=== PATIENT | female | born 1990 | race Caucasian/White ===

== ENCOUNTER 2016-12-08 20:17 | Emergency (ER) | payer OTHER ==
[2016-12-08 20:23] VITALS: O2SAT 98
--- NOTE | 2016-12-08 21:41 | EDPHY ---
H & P Stated Complaint: R Knee Pain, workers comp Source: Patient Exam Limitations: No limitations - Personal History LMP (Females 10-55): 8-14 Days Ago Current Tetanus/Diphtheria Vaccine: Yes Current Tetanus Diphtheria and Acellular Pertussis (TDAP): Yes - Medical/Surgical History Hx Asthma: Yes Hx Chronic Respiratory Disease: No Hx Diabetes: No Hx Cardiac Disease: No Hx Renal Disease: No Hx Cirrhosis: No Hx Alcoholism: No Hx HIV/AIDS: No Hx Splenectomy or Spleen Trauma: No Other PMH: PMH: Asthma - Social History Smoking Status: Heavy smoker Time Seen by Provider: 12/08/16 20:36 HPI/ROS: CHIEF COMPLAINT: Right knee pain HISTORY OF PRESENT ILLNESS: 26-year-old female presents emergency department complaining of right knee pain. 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 She was kneeling on 1 of the seats when her right knee slid off the seat. Patient reports she felt like her patella dislocated quickly and went back into place. Patient reports she felt a pop. Patient's knee feels unstable when ambulating. She complains of pain and feeling like she cannot straighten it all the way. She denies numbness or tingling to this leg, no previous injury to this knee. REVIEW OF SYSTEMS: A comprehensive 10 point review of systems is otherwise negative aside from elements mentioned in the history of present illness. (Keila Winn) - Physical Exam Exam: GEN: Awake, alert, oriented, no acute distress RESP: nl resp effort MSK: Right knee lacks 5 degrees of extension, flexion to 90 degrees. No swelling. No medial or lateral joint line tenderness, negative valgus and varus stress, unable to perform anterior drawer or Renate's due to patient fighting exam, 2+ pedal pulses, sensation intact to light touch SKIN: No break in skin (Keila Winn) Constitutional: Initial Vital Signs Temperature (C) 36.7 C 12/08/16 20:20 Heart Rate 90 12/08/16 20:20 Respiratory Rate 18 12/08/16 20:20 Blood Pressure 129/71 H 12/08/16 20:20 O2 Sat (%) 98 12/08/16 20:20 O2 Delivery Mode Room Air Allergies/Adverse Reactions: No Known Allergies Allergy (Unverified 12/08/16 20:24) Home Medications: Medication Instructions Recorded NK [No Known Home Meds] 12/08/16 Medical Decision Making - Diagnostics Imaging: Knee x-ray independently reviewed by me- Findings: No fracture, effusion or malalignment is identified. There is no arthritis, chondrocalcinosis, erosive change, subcortical cyst formation or spurring. There is a benign bone island in the proximal tibial shaft. Overall mineralization is normal. Impression: No source for pain identified. Dictated By: Diaz Blair MD (Keila Winn) ED Course/Re-evaluation: I did not see this patient while she was in the emergency department. However her care was discussed with the nurse practitioner while the patient was in the department. I agree with treatment plan and management (Enio Stearns) Departure - Departure Disposition: Home, Routine, Self-Care Clinical Impression: Right knee sprain Condition: Good Instructions: Knee Sprain (ED) Additional Instructions: Rest, ice, elevate, take 600mg of ibuprofen every 8 hours with food for 3-5 days as needed for pain and swelling. Wear knee immobilizer and use crutches as needed for ambulation. Follow up with orthopedist at 1st available appointment. Return to the emergency department for any numbness, tingling, discoloration of you limb or other concerns. Referrals: Akila Dimas MD [Medical Doctor] - As per Instructions (Orthopedist on-call) Stand Alone Forms: Work Limited Duty, Work Comp Follow Up
[2016-12-08 22:41] VITALS: BP 120/69; PULSE 70; RESP 16; TEMP 98.4
== END 2016-12-08 22:20 | disposition home or self-care (01) ==
DX: S83.91XA Sprain of unspecified site of right knee, initial encounter (principal); J45.909 Unspecified asthma, uncomplicated; F17.200 Nicotine dependence, unspecified, uncomplicated; X58.XXXA Exposure to other specified factors, initial encounter
CPT/HCPCS: L1830

== ENCOUNTER 2017-06-08 02:29 | Emergency (ER) | payer OTHER ==
[2017-06-08 02:36] VITALS: RESP 16; O2SAT 97
--- NOTE | 2017-06-08 02:45 | EDPHY ---
H & P Stated Complaint: Cleaning sloution in eyes HPI/ROS: Chief Complaint: Hand equipment cleaner and tester in eyes HPI: 26-year-old woman was at work tonight when to wash her hands when the soap dispenser would not work. She push on it again and the soap dispenser exploded causing hand soap to get into both her eyes. She irrigated her eyes and removed her contact lenses. Continue to have persistent pain in both her eyes. No prior injuries. Has some increasing tearing. Blurry vision which seems that is normal for when she does not have her contact lenses in. ROS: 10 point Review of Systems is negative except as noted in the HPI. PMH: Anxiety Social History: Positive smoking Family History: non-contributory Physical Exam: General: Awake, alert, no acute distress HEENT: Eyes: Pupils are normal bilaterally. She has bilateral injection. She has normal tearing. PH is between 7 and 8 on pH paper. Both eyes Skin: No rash - Personal History LMP (Females 10-55): 15-21 Days Ago Current Tetanus/Diphtheria Vaccine: Yes Current Tetanus Diphtheria and Acellular Pertussis (TDAP): Yes - Medical/Surgical History Hx Asthma: Yes Hx Chronic Respiratory Disease: No Hx Diabetes: No Hx Cardiac Disease: No Hx Renal Disease: No Hx Cirrhosis: No Hx Alcoholism: No Hx HIV/AIDS: No Hx Splenectomy or Spleen Trauma: No Other PMH: PMH: Asthma - Social History Smoking Status: Heavy smoker Constitutional: Initial Vital Signs Temperature (C) 36.6 C 06/08/17 02:34 Heart Rate 84 06/08/17 02:34 Respiratory Rate 16 06/08/17 02:34 Blood Pressure 123/96 H 06/08/17 02:34 O2 Sat (%) 97 06/08/17 02:34 O2 Delivery Mode Room Air Allergies/Adverse Reactions: No Known Allergies Allergy (Unverified 12/08/16 20:24) Home Medications: Medication Instructions Recorded NK [No Known Home Meds] 12/08/16 Medical Decision Making ED Course/Re-evaluation: Patient was irrigated with 1 L normal saline each eye. Repeat pH was 7.0 both eyes. Patient was feeling significantly improved. 0.5% proparacaine was diluted with 9 mL of normal saline to make 0.05% proparacaine solution. Patient was given 3 mL of this with instructions to apply 1-2 drops every 30 minutes as needed for pain. She was also given erythromycin ointment. She will follow up with Ophthalmology in 1-2 days for further evaluation. - Data Points Medications Given: Discontinued Medications Fluorescein Sodium (Etvpp-W-[place]) 2 mg OP EDNOW ONE Stop: 06/08/17 03:26 Last Admin: 06/08/17 03:56 Dose: Not Given Proparacaine HCl (Alcaine 0.5%) 1 drops EACHEYE ONCE ONE Stop: 06/08/17 03:27 Last Admin: 06/08/17 03:56 Dose: Not Given Departure - Departure Disposition: Home, Routine, Self-Care Clinical Impression: Chemical exposure of eye Condition: Good Instructions: Chemical Eye Padgett (ED) Additional Instructions: You may apply 1-2 drops of the numbing solution to each eye every 30 minutes as needed. Apply the eye ointment every 4 hours while awake. Follow up with Ophthalmology in 1-2 days for further evaluation. Referrals: Diogo Rajan MD [Medical Doctor] - As per Instructions
[2017-06-08] MEDS ORDERED: FLUORESCEIN SODIUM 1 MG STRIP OP ONE (03:25)
[2017-06-08] MEDS ORDERED: PROPARACAINE 0.5% 15 ML OPHT DROP ONE (03:26)
[2017-06-08] MEDS ORDERED: PROPARACAINE 0.5% 15 ML OPHT DROP EACHEYE ONE (03:26)
[2017-06-08] MEDS ORDERED: ERYTHROMYCIN 0.5% 1 GM OPHT.OINT EACHEYE ONE (04:18)
[2017-06-08 04:41] VITALS: BP 118/72; PULSE 80; TEMP 98.1
== END 2017-06-08 04:45 | disposition home or self-care (01) ==
LOC: EDUNIT#
DX: Z77.098 Contact with and (suspected) exposure to other hazardous, chiefly nonmedicinal, chemicals (principal); J45.909 Unspecified asthma, uncomplicated; F17.200 Nicotine dependence, unspecified, uncomplicated